=== PATIENT | male | born 1970 | race Two or more races ===

== ENCOUNTER 2024-04-24 04:12 | Emergency (ER) | payer MEDICAID, SELFPAY ==
[2024-04-24 04:13] VITALS: BMI 28.5
[2024-04-24 04:18] VITALS: BP 141/84; PULSE 75; RESP 18; TEMP 36.9; O2SAT 98
--- NOTE | 2024-04-24 04:28 | PD.EDRME ---
Rapid Medical Screening Exam RME Arrival date/time: 04/24/24 04:12 53-year-old male presents to the emergency department complaining of diffuse abdominal pain that is been ongoing for over 1 year but has worsened the last 3 days. Chief Complaint: Abdominal Pain Vital signs: Vital Signs Temperature 98.5 F 04/24/24 04:18 Pulse Rate 75 04/24/24 04:18 Respiratory Rate 18 04/24/24 04:18 Blood Pressure 141/84 H 04/24/24 04:18 Pulse Oximetry (%) 98 04/24/24 04:18 Oxygen Delivery Method Room Air 04/24/24 04:18 Vital signs reviewed by provider: Yes
[2024-04-24 04:46] LABS: Collection Type, Urine Clean Catch; Squamous Epithelial Cell,Urine 0 /hpf (0-5)
[2024-04-24 04:50] LABS: Basophils # (Auto) 0.1 Thou/mm3 (0.0-0.2); Basophils % (Auto) 1 % (0-2.5); Eosinophils # (Auto) 0.2 Thou/mm3 (0.0-0.5); Eosinophils % (Auto) 3 % (0-10); Hematocrit 48.4 % (41.0-53.0); Hemoglobin 16.3 g/dL (13.5-16.0); Immature Granulocytes % (Auto) 0 % (0-0); Immature Granulocytes Auto 0.01 Thou/mm3 (0.00-0.00); Lymphocytes # (Auto) 2.2 Thou/mm3 (1.0-4.8); Lymphocytes % (Auto) 32 % (10-50); Mean Corpuscular HGB Conc 33.7 g/dl (31.0-37.0); Mean Corpuscular Hemoglobin 29.5 pg (25.0-35.0); Mean Corpuscular Volume 88 fL (80-100); Monocytes # (Auto) 0.5 Thou/mm3 (0.0-0.8); Monocytes % (Auto) 8 % (0-12); Neutrophils % (Auto) 58 % (37-80); Nucleated Red Blood Cell % 0 /100 WBC (0); Platelet Count 190 Thou/mm3 (140-440); Red Blood Count 5.53 Miln/mm3 (4.50-5.90)
[2024-04-24 05:14] LABS: Alanine Aminotransferase 25 U/L (10-49); Albumin, Serum 4.9 gm/dL (3.5-5.0); Albumin/Globulin Ratio 1.8 (1.2-2.2); Alkaline Phosphatase 57 U/L (46-116); Anion Gap 5 (7-16); Aspartate Amino Transferase 23 U/L (0-34); BUN/Creatinine Ratio 11 Ratio (12-20); Bilirubin,Total 0.9 mg/dL (0.3-1.2); Blood Urea Nitrogen 11 mg/dL (9-23); Calcium 9.9 mg/dL (8.3-10.6); Calcium (Corrected) 9.9 mg/dL (8.5-10.1); Chloride 104 mMol/L (98-107); Estimated Creatinine Clearance 92.5 mL/min (>60); Globulin 2.8 gm/dL (2.3-3.5); Glucose 106 mg/dL (74-106); Lipase 46 U/L (12-53); Osmolality,Calculated 275 (275-295); Potassium 3.9 mMol/L (3.4-5.1); Sodium 138 mMol/L (136-145); Total Protein 7.7 gm/dL (5.7-8.2); eGFR > 60 See Note
[2024-04-24 05:30] LABS: Bilirubin,Urine Negative (Negative); Blood,Urine 1+ (Negative); Clarity,Urine Clear (Clear/Hazy); Color,Urine Lt-Yellow (Lt Yel-Yel); Culture Indicated,Urine Not Indicated; Glucose, Urine Negative (Negative); Hyaline Casts,Urine < 1 /hpf (0-1); Ketones,Urine Negative (Negative); Leukocyte Esterase,Urine Negative (Negative); Nitrite,Urine Negative (Negative); PH,Urine 5.5 (5.0-7.0); Protein,Urine Negative (Neg - Trace); RBC,Urine 3 /hpf (0-3); Urobilinogen,Urine Negative mg/dL (0.0-1.0); WBC,Urine < 1 /hpf (0-5)
--- NOTE | 2024-04-24 05:32 | EDNOTE_ITS ---
ED Abdominal Pain RME/HPI General Chief Complaint: Abdominal Pain Stated complaint: LLQ PAIN X1 YEAR Time seen by provider: 04/24/24 04:35 Arrival date/time: 04/24/24 04:12 53-year-old male presents to the emergency department complaining of diffuse abdominal pain that is been ongoing for over 1 year but has worsened the last 3 days. Patient denies any fever, chills, diarrhea, hematuria, cough, shortness of breath, or any other associated symptom. Source: patient Mode of arrival: ambulatory Limitations: no limitations RME / HPI RME / HPI narrative: 04/24/24 04:12 53-year-old male presents to the emergency department complaining of diffuse abdominal pain that is been ongoing for over 1 year but has worsened the last 3 days. Related Data Home Medications ?Medication ?Instructions ?Recorded ?Confirmed pantoprazole 40 mg tablet,delayed 40 mg PO QDAY 09/10/23 09/10/23 release (Protonix) rosuvastatin 20 mg tablet 20 mg PO QDAY 09/10/23 09/10/23 simethicone 125 mg tablet 125 mg PO QDAY PRN 09/10/23 09/10/23 Gastrointestinal Spasms Or Cramping Previous Rx's ?Medication ?Instructions ?Recorded ciprofloxacin HCl 500 mg tablet 500 mg PO BID #14 tabs 09/11/23 (Cipro) hydrocodone 5 mg-acetaminophen 325 1 tab PO Q6H PRN pain #30 tabs 09/11/23 mg tablet Allergies Allergy/AdvReac Type Severity Reaction Status Date / Time No Known Allergies Allergy Verified 09/11/23 09:50 Review of Systems Review of Systems Systems Reviewed: All systems reviewed, normal except as documented Constitutional Constitutional: Reports system reviewed and no additional complaints, except as documented, Denies body ache(s), Denies chills and Denies fever(s) Eyes Eyes: Reports system reviewed and no additional complaints, except as documented and Denies change in vision ENT Ears, Nose, Mouth, and Throat: Reports system reviewed and no additional complaints, except as documented, Denies disequilibrium, Denies dizziness, Denies sore throat and Denies vertigo Cardiovascular Cardiovascular: Reports system reviewed and no additional complaints, except as documented, Denies chest pain and Denies dyspnea Respiratory Respiratory: Reports system reviewed and no additional complaints, except as documented, Denies chest congestion, Denies cough and Denies dyspnea Gastrointestinal Gastrointestinal: Reports system reviewed and no additional complaints, except as documented, Reports abdominal pain, Denies nausea and Denies vomiting Musculoskeletal Musculoskeletal: Reports system reviewed and no additional complaints, except as documented, Denies abnormal gait and Denies arthralgias Integumentary/Breasts Skin/Breast: Reports system reviewed and no additional complaints, except as documented, Denies erythema, Denies rash and Denies wounds Neurologic Neurologic: Reports system reviewed and no additional complaints, except as documented, Denies abnormal gait, Denies disequilibrium, Denies dizziness and Denies vertigo Past Medical History Past Medical History NEUROLOGIC: Negative Neurological Disorders or Seizures CARDIAC: Positive Cardiac Disorders, Hypercholesterolemia and Hypertension (chooses not to take meds); Negative Congestive Heart Failure RESPIRATORY: Negative Chronic Obstructive Pulmonary Disease (COPD) GASTROINTESTINAL: Positive Gastrointestinal Disorders and Gastroesophageal Reflux Disease GENITOURINARY: Positive Genitourinary Disorders (right spermatocele); Negative Renal Disease MUSCULOSKELETAL: Negative Musculoskeletal Disorders ENDOCRINE: Negative Endocrine Disorders, Diabetes Mellitus Type 1 or Diabetes Mellitus Type 2 HEMATOLOGIC: Negative Blood Disorders OTHER HISTORY: Negative Hospitalization, Autoimmune Disease, Shingles, Blood Transfusions or Anesthesia Reactions Family History FAMILY HISTORY: Positive Family Cardiac Disorders and Family Surgery; Negative Family Psychiatric Problems, Family Respiratory Disorders, Family Gastrointestinal Problems, Family Cancer or Family Anesthesia Reaction Social History SMOKING STATUS: Never smoker ED Exam General Limitations: Present no limitations General appearance: Present alert and in no apparent distress Head Head exam: Present atraumatic Eye Eye exam: Present normal appearance, PERRL and EOMI ENT ENT exam: Present normal exam, normal oropharynx and mucous membranes moist Neck Neck exam: Present normal inspection, full ROM and trachea midline Chest Chest inspection: Present normal inspection and symmetric chest wall rise Respiratory Respiratory exam: Present normal lung sounds bilaterally Cardiovascular Cardiovascular exam: Present regular rate, normal rhythm and normal heart sounds Abdominal Exam Abdominal exam: Present soft, tenderness and normal bowel sounds; Absent Waite's sign or tenderness at McBurney's Point Extremities Exam Extremities exam: Present normal inspection and full ROM Back Exam Back exam: Present normal inspection and full ROM Neurological Exam Neurological exam: Present alert, oriented X3 and CN II-XII intact Psychiatric Psychiatric exam: Present normal affect and normal mood Skin Skin exam: Present warm, dry, intact and normal color Course Quality Measures none Orders Category Date Time Status CBC Stat Lab 04/24/24 04:40 Completed CMP [Comprehensive Metabolic Panel] Stat Lab 04/24/24 04:40 Completed Lipase Stat Lab 04/24/24 04:40 Completed Urinalysis, C/S if Indicated Stat Lab 04/24/24 04:40 Completed Lidocaine 2% Viscous [Xylocaine 2% Viscous] Med 04/24/24 05:38 Discontinued 15 ml PO X1 ONE mg Hyd/Al Hyd/Mylene Susp [Maalox Susp] Med 04/24/24 05:38 Discontinued 30 ml PO X1 ONE Vital Signs Vital signs: Vital Signs Temperature 98.5 F 04/24/24 04:18 Pulse Rate 75 04/24/24 04:18 Respiratory Rate 18 04/24/24 04:18 Blood Pressure 141/84 H 04/24/24 04:18 Pulse Oximetry (%) 98 04/24/24 04:18 Oxygen Delivery Method Room Air 04/24/24 04:18 98% room air within normal limits Abdominal Pain MDM MDM Narrative MDM Narrative:: 53-year-old male presents to the emergency department complaining of diffuse abdominal pain that is been ongoing for over 1 year but has worsened the last 3 days. Patient denies any fever, chills, diarrhea, hematuria, cough, shortness of breath, or any other associated symptom. Patient's abdomen is soft and nontender. CBC was unremarkable for any leukocytosis. CMP was unremarkable for any transaminitis or gross electrolyte abnormalities. Urinalysis was unremarkable for any signs of infection. Patient appears nontoxic and hemodynamically stable. Patient discharged home instructed to follow-up with primary care provider in 24 to 48 hours. Instructed to return to emergency department for any worsening symptoms or as needed. Patient data External records reviewed:: [facility] previous records Clinical information provided by:: patient Social determinants that could affect healthcare access:: none Patient has the following chronic illnesses:: N/A How is presenting disease/condition affected by chronic disease/condition?: no chronic disease Evaluation data The following diagnostics were reviewed and interpreted by me:: lab results Lab and/or radiology exams considered but not ordered:: Ordered Interpretation Summary: Interpreted by me Medications / Prescriptions Medications or Prescriptions considered but not ordered:: Prescribed Medication administrations:: Medication Administration History Discontinued Medications Al Hydrox/Mg Hydrox/Simethicone (Mg Hyd/Al Hyd/Mylene (Maalox Reg) Susp 30 Ml Udc) 30 ml PO X1 ONE Stop: 04/24/24 05:39 Lidocaine HCl (Lidocaine Viscous 2% 15 Ml Udc) 15 ml PO X1 ONE Stop: 04/24/24 05:39 N/A Consultations Consultation(s) initiated? (list below): No Diagnosis Differential diagnosis abdominal pain: abdominal pain, acute appendicitis and diverticulitis Most likely diagnosis given after review of the tests above:: Abdominal pain Admission Indicated Admission indicated?: not indicated Admission Request Was there a request for admission?: No Disposition Plan Disposition Plan: Discharge Discharge Attestation Discharge Attestation: The patient and all family members were given an opportunity to ask questions and understood the discharge instructions. Discharge instructions specifically effects, indications for sooner follow up or return to the emergency department, and the expected course of current diagnosis. Patient condition: Stable Discharge Plan Plan Patient Disposition: HOME (Self Care) Disposition Comment: Stable Prescriptions/Referrals Prescriptions/Med Rec: No Action pantoprazole [Protonix] 40 mg Tablet,Delayed Release (Dr/Ec) 40 mg PO QDAY simethicone 125 mg Tablet 125 mg PO QDAY PRN (Reason: Gastrointestinal Spasms Or Cramping) rosuvastatin 20 mg Tablet 20 mg PO QDAY hydrocodone-acetaminophen 5-325 mg tablet 1 tab PO Q6H MDD 4 PRN (Reason: pain) Qty: 30 0RF ciprofloxacin HCl [Cipro] 500 mg tablet 500 mg PO BID Qty: 14 0RF Problem List Clinical Impression: Abdominal pain Patient/Caregiver Discharge Instructions Discharge Activity: activity as tolerated Education Materials: Abdominal Pain Additional Instructions: Take [id number] Tylenol ibuprofen as needed for pain. Follow-up with primary care provider in 24 to 48 hours and request H. pylori testing if symptoms persist. Return eturn to emergency department for any worsening symptoms or as needed. Print Language: [place] Stand Alone Forms: [employer] Award Info., Patient Portal Info Letter Attestation Attestation The patient was seen by the midlevel practitioner. I, the co-signing physician, was present during the entire ER visit. While I did not physically examine the patient, I was available for consultation as needed.
[2024-04-24] MEDS: MG HYD/AL HYD/SIME (Maalox Reg) SUSP 30 ML UDC PO (06:15)
[2024-04-24] MEDS: LIDOCAINE VISCOUS 2% 15 ML UDC PO (06:15)
== END 2024-04-24 06:17 | disposition home or self-care (01) ==
LOC: SERX 05:53
PROVIDERS: Emergency Provider Emergency Medicine; PCP Nurse Practitioner
DX: R10.32 Left lower quadrant pain (principal)
CPT/HCPCS: 36415; 80053; 81001; 83690; 85025; 99283; J3490; A9270

== ENCOUNTER → 2024-12-31 | Outpatient (CLI) | payer MEDICAID, SELFPAY ==
--- NOTE | 2024-12-31 08:45 | XR_ITS ---
Examination: Abdomen sonogram, complete Date and time of exam: 12/31/2024. 0921 hours INDICATIONS: Mid abdominal pain beginning 2 years ago Technique: Multiple real-time grayscale transabdominal sonographic images of the abdomen have been obtained. Findings: Normal gallbladder. Normal common bile duct 0.4 cm Pancreatic head 2.1 cm Aorta not enlarged. Liver 14.1 cm fatty infiltration Normal hepatopedal portal venous flow Patent IVC Right kidney 11.2 cm renal cortex 1.9 cm 38 mm midpole cyst 11 mm midpole calculus Left kidney 11.2 cm renal cortex 1.5 cm Midpole 13 mm, 12 mm calculi No hydronephrosis Spleen 9.5 cm IMPRESSION: Bilateral nonobstructing renal calculi, no hydronephrosis
== END | disposition home or self-care (01) ==
LOC: CDIM 09:00
PROVIDERS: PCP Physician Assistant Medical; Referring Provider Physician Assistant; Visit Provider Physician Assistant
DX: N20.0 Calculus of kidney (principal)
CPT/HCPCS: 76700